=== PATIENT | female | born 1935 | race Caucasian/White ===

== ENCOUNTER → 2017-06-11 | Outpatient (CLI) | payer MEDICARE, OTHER ==
[~2017-06-11] MED LIST: ASPI1TAB69 PO; LEVO75TA3 PO; LIPI10TA PO; OMEP20TA93 PO; SENNA S PO; SULF500T3 PO; VITACAP7 PO
[2017-06-11 15:21] LABS: HEMATOCRIT 42.4 % (35.0-46.0); HEMOGLOBIN 14.1 GM/DL (11.6-15.3); MEAN CELL VOLUME 90.1 FL (80.0-100.0); MEAN CORPUSCULAR HGB CONC 33.3 % (32.0-36.0); MEAN PLATELET VOLUME 7.8 FL (7.0-11.0); PLATELET COUNT 238 TH/MM3 (150-450); RED BLOOD COUNT 4.71 MIL/MM3 (4.00-5.30); RED CELL DISTRIBUTION WIDTH 14.1 % (11.6-17.2); WHITE BLOOD COUNT 4.8 TH/MM3 (4.0-11.0)
[2017-06-11 15:51] LABS: BICARBONATE 28.5 MEQ/L (21.0-32.0); CREATININE 0.93 MG/DL (0.50-1.00)
[2017-06-11 16:00] LABS: CHOLESTEROL/ HDL RATIO 4.48 RATIO; HDL CHOLESTEROL 41.9 MG/DL (40.0-60.0)
== END ==
LOC: PLAB 09:12
PROVIDERS: ATTEND Family Medicine
DX: E03.9 Hypothyroidism, unspecified (principal); E78.5 Hyperlipidemia, unspecified
CPT/HCPCS: 36415; 80048; 80061; 84443; 85027